=== PATIENT | female | born 1965 | race Caucasian/White ===

== ENCOUNTER → 2016-11-14 | Outpatient (CLI) | payer BC ==
[~2016-11-14] MED LIST: LABE200T24 PO; LEVO75TA33 PO; LORA-741 PO; MULTTAB58 PO; OXYC5TAB PO; PANT40TA PO; Vitamin D3 PO
--- NOTE | 2016-11-14 14:08 | DIAGNOSTIC IMAGING REPORT ---
CHEST 2 VIEWS ROUTINE CLINICAL HISTORY: Shortness of breath COMPARISON STUDY: 07/29/2013 FINDINGS: The cardiac and mediastinal contours are normal. There is no evidence of focal pulmonary consolidation. There is no evidence of failure. No pleural effusions are visualized.[ There is an area of linear scarring at the posterior lung base as visualized in the lateral view. IMPRESSION: No active disease in the chest. Electronically signed by: Lukasz Daniels M.D. 11/14/2016 2:07 PM Dictated Date/Time: 11/14/2016 2:05 PM
[2016-11-14 17:01] LABS: BASO % 0.6 %; BASO ABS # 0.03 K/uL (0-0.2); COMPLETE YES; EOS % 1.8 %; HEMATOCRIT 40.8 % (37-47); IG% 0.2 %; LYMPH % 25.3 %; LYMPH ABS # 1.25 K/uL (1.2-3.4); MEAN CELL VOLUME 82.6 fL (80-100); MEAN CORPUSCULAR HEMOGLOBIN 29.1 pg (25-34); MEAN CORPUSCULAR HGB CONC 35.3 g/dl (32-36); MEAN PLATELET VOLUME 9.3 fL (7.4-10.4); MONO % 8.7 %; NEUT % 63.4 %; PLATELET COUNT 250 K/uL (130-400); RED BLOOD COUNT 4.94 M/uL (4.2-5.4); WHITE BLOOD COUNT 4.94 K/uL (4.8-10.8)
[2016-11-14 17:29] LABS: BLOOD UREA NITROGEN 13 mg/dl (7-18); BUN/CREATININE RATIO 14.4 (10-20); CALCIUM 9.1 mg/dl (8.5-10.1); CARBON DIOXIDE 30 mmol/L (21-32); CHLORIDE 103 mmol/L (98-107); CREATININE 0.92 mg/dl (0.60-1.20); GLUCOSE 119 mg/dl (70-99); POTASSIUM 3.7 mmol/L (3.5-5.1); SODIUM 140 mmol/L (136-145)
== END | disposition home or self-care (01) ==
LOC: C.RADBC 13:47
PROVIDERS: ATTEND Internal Medicine Geriatric Medicine
DX: R06.02 Shortness of breath (principal)

== ENCOUNTER → 2017-01-26 | Outpatient (CLI) | payer BC ==
--- NOTE | 2017-01-26 14:52 | DIAGNOSTIC IMAGING REPORT ---
THYROID ULTRASOUND CLINICAL HISTORY: Thyroid nodule. Dysphagia. COMPARISON STUDY: Thyroid ultrasound January 22, 2015. TECHNIQUE: Sonography of the thyroid gland was performed. FINDINGS: The right thyroid lobe measures 4.3 x 1.3 x 1.5 cm. The dominant right lobe nodule which was previously biopsied is similar to prior exam when allowing for measurement variability. A few additional thyroid nodules are unchanged since prior exam. As before, the gland is heterogeneous. IMPRESSION: No significant change in several thyroid nodules. Electronically signed by: Tommie Lane M.D. 01/26/2017 2:51 PM Dictated Date/Time: 01/26/2017 2:47 PM
== END | disposition home or self-care (01) ==
LOC: C.ULTRBC 14:24
PROVIDERS: ATTEND Family Medicine
DX: R13.10 Dysphagia, unspecified (principal); E04.2 Nontoxic multinodular goiter

== ENCOUNTER → 2017-01-30 | Outpatient (CLI) | payer BC ==
--- NOTE | 2017-01-30 08:52 | DIAGNOSTIC IMAGING REPORT ---
(BARIUM SWALLOW) ESOPHAGUS CLINICAL HISTORY: Dysphagia. COMPARISON STUDY: Barium swallow June 20, 2011. FLUOROSCOPY TIME: 0.9 minutes. FINDINGS: 24 fluoroscopic images were obtained. Esophageal motility was normal. No esophageal mass or stricture was identified. A 13 mm barium tablet passed into the stomach. Moderate gastroesophageal reflux was noted. Gastroesophageal junction was normal. No hiatal hernia was identified. IMPRESSION: 1. No esophageal mass or stricture. 2. Moderate gastroesophageal reflux. Electronically signed by: Tommie Lane M.D. 01/30/2017 8:51 AM Dictated Date/Time: 01/30/2017 8:49 AM
== END | disposition home or self-care (01) ==
LOC: C.RAD 07:33
PROVIDERS: ATTEND Family Medicine
DX: R13.10 Dysphagia, unspecified (principal); K21.9 Gastro-esophageal reflux disease without esophagitis

== ENCOUNTER → 2017-01-31 | Outpatient (CLI) | payer BC ==
--- NOTE | 2017-02-01 08:15 | MAMMOGRAPHY REPORT ---
BILATERAL DIGITAL SCREENING MAMMOGRAM TOMOSYNTHESIS WITH CAD: 01/31/2017 CLINICAL HISTORY: Routine screening. Patient has no complaints. TECHNIQUE: Breast tomosynthesis in addition to standard 2D mammography was performed. Current study was also evaluated with a Computer Aided Detection (CAD) system. COMPARISON: Comparison is made to exams dated: 01/26/2016 ultrasound, 01/26/2016 mammogram, 07/21/2015 mammogram, 01/18/2015 mammogram, 01/13/2015 mammogram, and 09/18/2012 mammogram - [facility]. BREAST COMPOSITION: There are scattered areas of fibroglandular density in both breasts. FINDINGS: There is scattered nodularity and associated microcalcification throughout the right great er than left breast, stable compared to prior exams most likely representing benign fibrocystic ayala ges. No suspicious spiculated or irregular mass, architectural distortion or cluster of suspicious microcalcifications is seen. IMPRESSION: ACR BI-RADS CATEGORY 1: NEGATIVE There is no mammographic evidence of malignancy. A 1 year screening mammogram is recommended. The p atient will receive written notification of the results. Approximately 10% of breast cancers are not detected with mammography. A negative mammographic repor t should not delay biopsy if a clinically suggestive mass is present. Vivian Jensen M.D. ay/:01/31/2017 17:35:39 Tobacco Blender: Iqra MORALES)(M), [facility] letter sent: Normal 1/2 BI-RADS Code: ACR BI-RADS Category 1: Negative
== END | disposition home or self-care (01) ==
LOC: C.MAMM 12:05
PROVIDERS: ATTEND Family Medicine
DX: Z12.31 Encounter for screening mammogram for malignant neoplasm of breast (principal)

== ENCOUNTER → 2017-05-03 | Outpatient (CLI) | payer BC ==
[2017-05-03 13:42] LABS: BASO % 0.6 %; BASO ABS # 0.03 K/uL (0-0.2); COMPLETE YES; EOS % 1.6 %; HEMATOCRIT 41.8 % (37-47); IG% 0.2 %; MEAN CELL VOLUME 85.8 fL (80-100); MEAN CORPUSCULAR HEMOGLOBIN 29.8 pg (25-34); MEAN CORPUSCULAR HGB CONC 34.7 g/dl (32-36); MEAN PLATELET VOLUME 9.6 fL (7.4-10.4); MONO % 6.4 %; NEUT % 63.2 %; PLATELET COUNT 245 K/uL (130-400); RED BLOOD COUNT 4.87 M/uL (4.2-5.4)
[2017-05-03 14:27] LABS: BLOOD UREA NITROGEN 10 mg/dl (7-18); BUN/CREATININE RATIO 13.9 (10-20); CALCIUM 9.5 mg/dl (8.5-10.1); CARBON DIOXIDE 28 mmol/L (21-32); CHLORIDE 106 mmol/L (98-107); CREATININE 0.72 mg/dl (0.60-1.20); GLUCOSE 89 mg/dl (70-99); SODIUM 140 mmol/L (136-145)
[2017-05-03 14:29] LABS: LYME DISEASE AB IGG NEG (NEG)
[2017-05-03 14:32] LABS: LYME DISEASE AB IGM NEG (NEG)
== END | disposition home or self-care (01) ==
LOC: C.LABBC 10:24
PROVIDERS: ATTEND Physician Assistant Medical
DX: R51 Headache (principal); E03.9 Hypothyroidism, unspecified

== ENCOUNTER → 2017-06-13 | Outpatient (CLI) | payer BC ==
[2017-06-13 14:09] LABS: URINE APPEARANCE CLEAR (CLEAR); URINE BILIRUBIN NEG (NEG); URINE COLOR YELLOW; URINE NITRITE NEG (NEG); UROBILINOGEN NEG (NEG)
[2017-06-13 14:22] LABS: MANUAL MICROSCOPIC REQUIRED? NO; REVIEW REQ? NO
== END | disposition home or self-care (01) ==
LOC: C.LABSPEC 13:30
PROVIDERS: ATTEND Physician Assistant
DX: R39.9 Unspecified symptoms and signs involving the genitourinary system (principal)

== ENCOUNTER → 2017-09-14 | Outpatient (CLI) | payer BC | END | disposition home or self-care (01) | LOC: C.PAPS 09:24 | PROVIDERS: ATTEND Obstetrics & Gynecology | DX: Z01.419 Encounter for gynecological examination (general) (routine) without abnormal findings (principal) ==

== ENCOUNTER → 2017-11-16 | Outpatient (CLI) | payer BC ==
[2017-11-16 10:59] LABS: BASO % 0.6 %; BASO ABS # 0.03 K/uL (0-0.2); EOS % 1.6 %; EOS ABS # 0.08 K/uL (0-0.5); HEMATOCRIT 39.7 % (37-47); HEMOGLOBIN 14.3 g/dL (12.0-16.0); LYMPH % 29.1 %; LYMPH ABS # 1.45 K/uL (1.2-3.4); MEAN CELL VOLUME 83.6 fL (80-100); MEAN CORPUSCULAR HEMOGLOBIN 30.1 pg (25-34); MEAN PLATELET VOLUME 9.5 fL (7.4-10.4); NEUT % 60.7 %; NEUT ABS # 3.03 K/uL (1.4-6.5); PLATELET COUNT 240 K/uL (130-400); RED CELL DISTRIBUTION WIDTH CV 12.4 % (11.5-14.5); RED CELL DISTRIBUTION WIDTH SD 37.6 fL (36.4-46.3); WHITE BLOOD COUNT 4.99 K/uL (4.8-10.8)
[2017-11-16 11:10] LABS: BLOOD UREA NITROGEN 13 mg/dl (7-18); CALCIUM 9.1 mg/dl (8.5-10.1); CARBON DIOXIDE 26 mmol/L (21-32); CREATININE 0.72 mg/dl (0.60-1.20); GLUCOSE 93 mg/dl (70-99); SODIUM 136 mmol/L (136-145)
== END | disposition home or self-care (01) ==
LOC: C.LABBC 07:15
PROVIDERS: ATTEND Nurse Practitioner Adult Health
DX: E03.9 Hypothyroidism, unspecified (principal); R53.83 Other fatigue; R51 Headache; I10 Essential (primary) hypertension

== ENCOUNTER 2017-12-14 01:28 | Observation (INO) | payer BC ==
[~2017-12-14] VITALS: Ht 160 cm; Wt 88.9 kg
[2017-12-14] MEDS ORDERED: LORAZEPAM 2 MG/ML 1 ML VIAL IV STA (01:39)
[2017-12-14 02:07] LABS: BASO ABS # 0.06 K/uL (0-0.2); EOS % 1.1 %; EOS ABS # 0.07 K/uL (0-0.5); HEMATOCRIT 41.7 % (37-47); HEMOGLOBIN 15.5 g/dL (12.0-16.0); IG# 0.01 K/uL (0.00-0.02); MEAN CELL VOLUME 82.9 fL (80-100); MEAN CORPUSCULAR HEMOGLOBIN 30.8 pg (25-34); MEAN CORPUSCULAR HGB CONC 37.2 g/dl (32-36); MEAN PLATELET VOLUME 8.8 fL (7.4-10.4); MONO % 8.1 %; NEUT % 63.6 %; NEUT ABS # 3.92 K/uL (1.4-6.5); PLATELET COUNT 218 K/uL (130-400); RED CELL DISTRIBUTION WIDTH CV 12.4 % (11.5-14.5); WHITE BLOOD COUNT 6.16 K/uL (4.8-10.8)
[2017-12-14 02:27] LABS: ALBUMIN 4.5 gm/dl (3.4-5.0); ALT/SGPT 35 U/L (12-78); AST/SGOT 13 U/L (15-37); BLOOD UREA NITROGEN 15 mg/dl (7-18); CALCIUM 9.9 mg/dl (8.5-10.1); CARBON DIOXIDE 26 mmol/L (21-32); GLUCOSE 91 mg/dl (70-99); LIPASE 211 U/L (73-393); POTASSIUM 3.6 mmol/L (3.5-5.1); SODIUM 138 mmol/L (136-145)
[2017-12-14 02:38] LABS: ALKALINE PHOSPHATASE 91 U/L (45-117); TOTAL PROTEIN 8.6 gm/dl (6.4-8.2)
[2017-12-14] MEDS ORDERED: POTASSIUM CHLORIDE 10 MEQ TABCR PO STA (04:08)
[2017-12-14] MEDS ORDERED: LORAZEPAM 0.5 MG TAB PO PRN (04:30)
[2017-12-14] MEDS ORDERED: ONDANSETRON 8MG OD TAB PO PRN (04:30)
[2017-12-14] MEDS ORDERED: NITROGLYCERIN 0.4 MG SL PER TAB CHARGE SL PRN (04:30)
[2017-12-14] MEDS ORDERED: ACETAMINOPHEN 325 MG TAB PO PRN (04:30)
[2017-12-14] MEDS ORDERED: CHOL1TAB12 PO (05:01)
--- NOTE | 2017-12-14 05:20 | History and Physical ---
History & Physical Date & Time of Service: Dec 14, 2017 at 05:00 Chief Complaint: High Bp,Heart Palpitations,Short Of Preath Primary Care Physician: No Doctor, Assigned History of Present Illness Source: patient, hospital records The patient is a 52-year-old female who presents to the emergency department with worsening in frequency and intensity PVCs, during which she reports an episode of dizziness that accompanied her last set prior to arrival. She follows with cardiology Dr. Wagoner. She reports taking her medications as directed. She continues to have poor sleep that she reports is so for several years. She has not had a significant change in diet or exercise pattern. She has questioned as to whether she may be perimenopausal. She reports having had an echocardiogram performed a few weeks ago, that she was told was normal. She does not take any [id number] products including caffeine or decongestants. She does report that she is tired frequently because of inadequate sleep. Past Medical/Surgical History Medical Problems: (1) Abdominal pain (2) Appendectomy (3) Benign hypertension (4) Endometrial ablation (5) Gallbladder sludge (6) Gastroesophageal reflux disease (7) Hypothyroidism (8) Malignant essential hypertension (9) Near syncope (10) PVCs (11) Symptomatic PVCs Family History noncontributory Social History Smoking Status: Never Smoker Smokeless Tobacco Use: No Alcohol Use: none Drug Use: none Marital Status: Housing status: lives with family Occupational Status: employed Immunizations History of Influenza Vaccine: Unknown Influenza Vaccine Date: Jul 11, 2011 History of Tetanus Vaccine?: Unknown Tetanus Immunization Date: Feb 27, 2008 History of Pneumococcal: Unknown History of Hepatitis B Vaccine: Unknown Allergies Coded Allergies: SHAD Inhibitors (Verified Allergy, Mild, 08/11/13) Azithromycin (Verified Allergy, Unknown, HIVES, 07/22/15) Codeine (Verified Allergy, Unknown, SWELLING, 07/22/15) Doxycycline (Verified Allergy, Unknown, UNKN, 08/11/13) Lisinopril (Verified Allergy, Unknown, UNKN, 08/11/13) Metoprolol (Verified Allergy, Unknown, UNKN, 08/11/13) Morphine (Verified Allergy, Unknown, 08/11/13) Penicillins (Verified Allergy, Unknown, 08/11/13) Uncoded Allergies: MORPHINE DERIVATIVES (Allergy, Unknown, UNKN, 05/11/13) bee stings (Allergy, Unknown, swelling, 07/22/15) Home Medications Scheduled Labetalol Hcl (Labetalol Hcl), 300 MG PO QAM Labetalol Hcl (Labetalol Hcl), 100 MG PO NOON+PM Levothyroxine (Levoxyl), 0.075 MG PO DAILY Multiple Vitamin (Multivitamin), 1 TAB PO DAILY Pantoprazole (Protonix), 40 MG PO DAILY [Vitamin D3], 1,000 INTER.UNIT PO DAILY Scheduled PRN Lorazepam (Ativan), 0.5 MG PO Q6H PRN for Anxiety Review of Systems The patient denies chest pain, dyspnea on exertion, cough, lower extremity swelling, sore throat, fevers, chills, sweats, weight change, nausea, vomiting, diarrhea , constipation, abdominal pain, pelvic pain, blood in urine or stool, dysuria, urinary frequency or urgency, headache, memory loss, loss of consciousness, rash, abnormal bruising or bleeding, imbalance, focal or generalized weakness, numbness or tingling in arms or legs, generalized arthralgias or myalgias, back or neck pain, or night sweats. The review of systems is otherwise negative other than for that already noted above, and at least 10 systems have been reviewed. Physical Exam Vital Signs Date Time Temp Pulse Resp B/P (MAP) Pulse Ox O2 Delivery O2 Flow Rate FiO2 12/14/17 04:00 83 18 139/89 96 Room Air 12/14/17 02:32 90 18 159/97 98 Room Air 12/14/17 02:32 98 Room Air 12/14/17 01:51 96 Room Air 12/14/17 01:45 87 12/14/17 01:29 36.4 77 20 188/95 97 Room Air The patient is awake, alert and oriented 3, well developed and well nourished, normocephalic and atraumatic, lying in bed and in no acute distress. HEENT--PERRL, EOMI, mucous membranes and oropharynx normal. Neck--supple. No JVD. No bruits. Thyroid normal, trachea midline, no adenopathy. Heart--normal S1 and S2. No murmurs, rubs or gallops. Lungs--clear bilaterally, no respiratory distress, no accessory muscle use. Abdomen--normal bowel sounds and soft. Nontender. Nondistended, no hernias or masses, no organomegaly. Extremities--no cyanosis or clubbing. No edema. There are good distal pulses b/ l. Dermatologic--normal skin turgor, normal color, no abnormal lymph nodes, no rash. Neurologic--cranial nerves II through XII grossly intact. Rheumatologic--normal range of motion. Psychiatric--normal affect. Diagnostics Laboratory Results Results Past 24 Hours Test 12/14/17 01:45 12/14/17 01:55 12/14/17 04:25 Range/Units White Blood Count 6.16 4.8-10.8 K/uL Red Blood Count 5.03 4.2-5.4 M/uL Hemoglobin 15.5 12.0-16.0 g/dL Hematocrit 41.7 37-47 % Mean Corpuscular Volume 82.9 80-100 fL Mean Corpuscular Hemoglobin 30.8 25-34 pg Mean Corpuscular Hemoglobin Concent 37.2 32-36 g/dl Platelet Count 218 130-400 K/uL Mean Platelet Volume 8.8 7.4-10.4 fL Neutrophils (%) (Auto) 63.6 % Lymphocytes (%) (Auto) 26.0 % Monocytes (%) (Auto) 8.1 % Eosinophils (%) (Auto) 1.1 % Basophils (%) (Auto) 1.0 % Neutrophils # (Auto) 3.92 1.4-6.5 K/uL Lymphocytes # (Auto) 1.60 1.2-3.4 K/uL Monocytes # (Auto) 0.50 0.11-0.59 K/uL Eosinophils # (Auto) 0.07 0-0.5 K/uL Basophils # (Auto) 0.06 0-0.2 K/uL RDW Standard Deviation 37.0 36.4-46.3 fL RDW Coefficient of Variation 12.4 11.5-14.5 % Immature Granulocyte % (Auto) 0.2 % Immature Granulocyte # (Auto) 0.01 0.00-0.02 K/uL Sodium Level 138 136-145 mmol/L Potassium Level 3.6 3.5-5.1 mmol/L Chloride Level 104 98-107 mmol/L Carbon Dioxide Level 26 21-32 mmol/L Anion Gap 8.0 3-11 mmol/L Blood Urea Nitrogen 15 7-18 mg/dl Creatinine 0.70 0.60-1.20 mg/dl Est Creatinine Clear Calc Drug Dose 98.3 ml/min Estimated GFR () 114.6 Estimated GFR (Non- 98.9 BUN/Creatinine Ratio 21.1 10-20 Random Glucose 91 70-99 mg/dl Calcium Level 9.9 8.5-10.1 mg/dl Magnesium Level 2.2 1.8-2.4 mg/dl Total Bilirubin 0.7 0.2-1 mg/dl Direct Bilirubin 0.1 0-0.2 mg/dl Aspartate Amino Transf (AST/SGOT) 13 15-37 U/L Alanine Aminotransferase (ALT/SGPT) 35 12-78 U/L Alkaline Phosphatase 91 45-117 U/L Troponin I < 0.015 0-0.045 ng/ml Total Protein 8.6 6.4-8.2 gm/dl Albumin 4.5 3.4-5.0 gm/dl Lipase 211 73-393 U/L Thyroid Stimulating Hormone (TSH) 5.840 0.300-4.500 uIu/ml Bedside D-Dimer 196 0-450 ng/mlFEU Bedside Troponin I < 0.030 0-0.045 ng/ml CXR normal EKG EKG shows normal sinus rhythm at 90 bpm, ventricular bigeminy, no acute ST-T changes. Impression Assessment and Plan Symptomatic PVCs/runs of ventricular bigeminy and isolated PVCs-- The patient will be admitted to telemetry for serial cardiac enzymes, serial EKG's, and cardiac rhythm monitoring. Echocardiogram had been performed recently and was normal, and will therefore not be repeated. Continue labetalol 300 mg in the morning, 100 mg at noon, and 100 mg at 430 to 5 :00 (which is typically when she returns home from work). Her potassium level was borderline at 3.6, and will therefore give 40 mEq of potassium orally, and would target her potassium to be 4.0 or above. She has not been sleeping well for a long time, which may be an influencing factor. Her thyroid is mildly undercorrected, and she has a history of hyperthyroidism with radioiodine therapy. She should also speak with her senior analysis specialist regarding possible perimenopausal influence. Consult her soup person Dr. Wagoner. Hypothyroidism/status post radio iodine ablation therapy for hyperthyroidism-- Continue levothyroxine sodium 75 mcg daily Add a free T4, free T3, thyroid microsomal antibodies and thyroid-stimulating antibodies. Her last thyroid ultrasound was January 2017, and showed stable thyroid nodules. This will need repeated. GERD-- Continue pantoprazole 40 mg daily. Anxiety-- Continue Lorazepam. Advanced Directives Existing Advance Directive: No Existing Living Will: No Existing Power of Tobacco Scrap Sifter: No Resuscitation Status VTE Prophylaxis Will order VTE Prophylaxis: Yes Social Service Consult None Apply
--- NOTE | 2017-12-14 05:24 | EMERGENCY ROOM VISIT NOTE ---
History First contact with patient: 01:32 Chief Complaint: CHEST PAIN Stated Complaint: HIGH BP,HEART PALPITATIONS,SHORT OF PREATH Nursing Triage Summary: pt c/o chest "tightness." states it has been going on "for weeks" but is worse tonight. pt denies sob. states she was dx with "PVCs" in july. denies chest trauma or recent long travel. lungs clear in all zap[place]. pt alert and oriented x4, breathing WNL, and ambulatory independently. History of Present Illness The patient is a 52 year old female who presents to the Emergency Room with complaints of chest pressure and palpitations for the past several hours feels slightly lightheaded. No prior heart disease. Patient is a history of PVCs. Patient states she can feel them more frequently now. Patient states she feels slightly short of breath. Patient denies radiating pain, diaphoresis, nausea, vomiting, diarrhea, abdominal pain, leg pain or swelling, recent travel. No family history of heart disease or blood clots. No prior stress test. Patient states she had an echo a few weeks ago that was unchanged per patient. She cannot recall who the excelsior cutter was. Review of Systems An 10 system review of systems was completed with positives and pertinent negatives listed in the HPI. Past Medical/Surgical History Medical Problems: (1) Appendectomy (2) Benign hypertension (3) Endometrial ablation (4) Gastroesophageal reflux disease (5) Hypothyroidism (6) Near syncope (7) PVCs (8) Symptomatic PVCs Social History Smoking Status: Never Smoker Alcohol Use: none Marital Status: Housing Status: lives with family Occupation Status: employed Current/Historical Medications Scheduled Cholecalciferol (Vitamin D3), 3,000 UNITS PO DAILY Labetalol Hcl (Labetalol Hcl), 300 MG PO QAM Labetalol Hcl (Labetalol Hcl), 100 MG PO NOON+PM Levothyroxine (Levoxyl), 0.075 MG PO DAILY Multiple Vitamin (Multivitamin), 1 TAB PO DAILY Pantoprazole (Protonix), 40 MG PO DAILY [Vitamin D3], 1,000 INTER.UNIT PO DAILY Scheduled PRN Lorazepam (Ativan), 0.5 MG PO Q6H PRN for Anxiety Physical Exam Vital Signs Date Time Temp Pulse Resp B/P (MAP) Pulse Ox O2 Delivery O2 Flow Rate FiO2 12/14/17 05:04 78 18 131/70 97 3/23/18 04:00 83 18 139/89 96 Room Air 12/14/17 02:32 90 18 159/97 98 Room Air 12/14/17 02:32 98 Room Air 12/14/17 01:51 96 Room Air 12/14/17 01:45 87 12/14/17 01:29 36.4 77 20 188/95 97 Room Air Physical Exam VITALS: Vitals are noted on the nurse's note and reviewed by myself. Vital signs stable. GENERAL: Pleasant female anxious appearing, in no acute distress, nondiaphoretic , well-developed well-nourished. SKIN: The skin was without rashes, erythema, edema, or bruising. There is no tenting of the skin. Capillary reflex less than 2 seconds. HEAD: Normocephalic atraumatic. EARS: External auditory canals clear, tympanic membranes pearly torres without erythema or effusion bilaterally. EYES: Pupils equal round and reactive to light and accommodation. Conjunctivae without injection, sclerae without icterus. Extraocular movements intact. NOSE: Patent, turbinates without inflammation or discharge. MOUTH: Mucous membranes moist. Pharynx without erythema or exudate. Uvula midline. Airway patent. Tongue does not deviate. NECK: Supple without nuchal rigidity. No lymphadenopathy. No thyromegaly. Cervical spine is nontender. No JVD. HEART: Regular rate and rhythm without murmurs gallops or rubs. LUNGS: Clear to auscultation bilaterally without wheezes, rales or rhonchi. No retractions or accessory muscle use. ABDOMEN: Positive bowel sounds x 4. Normal tympanic percussion. Soft, nontender, without masses or organomegaly. Hernandez sign negative. No guarding or rebound tenderness. No CVA tenderness MUSCULOSKELETAL: No muscle atrophy, erythema, or edema noted. NEURO: Patient was alert and oriented to person place and time. Normal sensation to light and sharp touch. No focal neurological deficits. Medical Decision & Procedures Laboratory Results 12/14/17 01:45 Red Blood Count 5.03, Mean Corpuscular Volume 82.9, Mean Corpuscular Hemoglobin 30.8, Mean Corpuscular Hemoglobin Concent 37.2, Mean Platelet Volume 8.8, Neutrophils (%) (Auto) 63.6, Lymphocytes (%) (Auto) 26.0, Monocytes (%) (Auto) 8.1, Eosinophils (%) (Auto) 1.1, Basophils (%) (Auto) 1.0, Neutrophils # (Auto) 3.92, Lymphocytes # (Auto) 1.60, Monocytes # (Auto) 0.50, Eosinophils # (Auto) 0.07, Basophils # (Auto) 0.06 12/14/17 01:45 Test 12/14/17 01:45 12/14/17 01:55 12/14/17 04:25 White Blood Count 6.16 K/uL (4.8-10.8) Red Blood Count 5.03 M/uL (4.2-5.4) Hemoglobin 15.5 g/dL (12.0-16.0) Hematocrit 41.7 % (37-47) Mean Corpuscular Volume 82.9 fL (80-100) Mean Corpuscular Hemoglobin 30.8 pg (25-34) Mean Corpuscular Hemoglobin Concent 37.2 g/dl (32-36) Platelet Count 218 K/uL (130-400) Mean Platelet Volume 8.8 fL (7.4-10.4) Neutrophils (%) (Auto) 63.6 % Lymphocytes (%) (Auto) 26.0 % Monocytes (%) (Auto) 8.1 % Eosinophils (%) (Auto) 1.1 % Basophils (%) (Auto) 1.0 % Neutrophils # (Auto) 3.92 K/uL (1.4-6.5) Lymphocytes # (Auto) 1.60 K/uL (1.2-3.4) Monocytes # (Auto) 0.50 K/uL (0.11-0.59) Eosinophils # (Auto) 0.07 K/uL (0-0.5) Basophils # (Auto) 0.06 K/uL (0-0.2) RDW Standard Deviation 37.0 fL (36.4-46.3) RDW Coefficient of Variation 12.4 % (11.5-14.5) Immature Granulocyte % (Auto) 0.2 % Immature Granulocyte # (Auto) 0.01 K/uL (0.00-0.02) Anion Gap 8.0 mmol/L (3-11) Est Creatinine Clear Calc Drug Dose 98.3 ml/min Estimated GFR () 114.6 Estimated GFR (Non- 98.9 BUN/Creatinine Ratio 21.1 (10-20) Calcium Level 9.9 mg/dl (8.5-10.1) Magnesium Level 2.2 mg/dl (1.8-2.4) Total Bilirubin 0.7 mg/dl (0.2-1) Direct Bilirubin 0.1 mg/dl (0-0.2) Aspartate Amino Transf (AST/SGOT) 13 U/L (15-37) Alanine Aminotransferase (ALT/SGPT) 35 U/L (12-78) Alkaline Phosphatase 91 U/L (45-117) Troponin I < 0.015 ng/ml (0-0.045) Total Protein 8.6 gm/dl (6.4-8.2) Albumin 4.5 gm/dl (3.4-5.0) Lipase 211 U/L (73-393) Thyroid Stimulating Hormone (TSH) 5.840 uIu/ml (0.300-4.500) Free Thyroxine 1.21 ng/dl (0.80-1.60) Bedside D-Dimer 196 ng/mlFEU (0-450) Bedside Troponin I < 0.030 ng/ml (0-0.045) Medications Administered Medications (Trade) Dose Ordered Sig/Latonya Route Start Time Stop Time Status Last Admin Dose Admin Lorazepam (Ativan Inj) 1 mg NOW STAT IV 12/14/17 01:39 12/14/17 01:41 DC 12/14/17 02:26 1 MG Potassium Chloride (Klor-Con M10) 40 meq NOW STAT PO 12/14/17 04:08 12/14/17 04:09 DC 12/14/17 04:19 40 MEQ ED Course Prior records/ancillary studies reviewed. Triage Nursing notes reviewed. Additional history obtained from family. The patient's history was concerning for chest pain and palpitations. Differential diagnosis: Etiologies such as cardiac ischemia, aortic dissection, pulmonary embolism, pneumonia, pneumothorax, musculoskeletal, infections, pericarditis, myocarditis , esophageal rupture, gastrointestinal, thyroid disorder, electrolyte abnormality, as well as others were entertained. Physical examination: As above. ER treatment provided: Ativan On reassessment the patient felt better. Diagnostic interpretation by me: The electrocardiogram was normal sinus, bigeminy PVCs, no acute ST-T wave changes, impression normal sinus rhythm with bigeminy PVCs interpreted by myself The labs revealed negative troponin. Negative d-dimer Imaging studies: Chest x-ray with no acute consolidation, pneumothorax or free air per my interpretation Consultation: A consultation was placed with the hospitalist, Dr. Graves. The case was discussed and diagnostics were reviewed. The patient was evaluated in the ER for further treatment. Exam and history seem consistent with chest pain and palpitations with bigeminy. Patient still anxious appearing. Patient is at high blood pressure. She has never had a stress test. Patient feels symptomatic with her PVCs. She will be evaluated by medicine for possible cardiac rule out. Patient's first troponin is negative. She had a negative d-dimer. I do not believe she is having a PE. Patient's symptoms are most likely from her frequent PVCs. By the evaluation outlined above emergent etiologies such as aortic dissection, pulmonary embolism, pneumonia, pneumothorax, infections, pericarditis, myocarditis, gastrointestinal, as well as others were deemed relatively unlikely. The pt informed about the findings as listed above. All questions were answered and pleased with the treatment. Case reviewed with my attending The chart was completed utilizing [employer] Speech voice recognition software. Grammatical errors, random word insertions, pronoun errors, and incomplete sentences are an occassional consequence of this system due to software limitations, ambient noise, and hardware issues. Any formal questions or concerns about the content, text, or information contained within the body of this dictation should be directly addressed to the physician triage assistant for clarification. Medical Decision As above Medication Reconcilliation Current Medication List: was personally reviewed by me Blood Pressure Screening Patient's blood pressure: Normal blood pressure Impression Primary Impression: Substernal precordial chest pain Additional Impression: Bigeminy Departure Information Dispostion Being Evaluated By Hospitalist Condition GOOD Referrals No Doctor, Assigned (PCP) Patient Instructions [facility] Problem Qualifiers
[2017-12-14 05:45] VITALS: BP 131/85; PULSE 86; TEMP 36.5; O2SAT 96; Ht 160 cm; Wt 88.9 kg
[2017-12-14] MEDS ORDERED: IV FLUIDS COMPLETED PRN ×2 (05:45)
--- NOTE | 2017-12-14 07:32 | DIAGNOSTIC IMAGING REPORT ---
CHEST ONE VIEW PORTABLE HISTORY: Atypical CHEST PAIN COMPARISON: Chest 11/14/2016. FINDINGS: The lungs are clear. Cardiac silhouette is normal in size. No pleural effusions. No pneumothorax. IMPRESSION: No acute process. Electronically signed by: Jg Keyes M.D. 12/14/2017 7:31 AM Dictated Date/Time: 12/14/2017 7:30 AM
[2017-12-14 08:00] VITALS: BP 131/84; PULSE 82; TEMP 36.7; O2SAT 96
[2017-12-14] MEDS ORDERED: LABETALOL HCL 100 MG TAB PO SCH ×2 (09:00→12:00)
[2017-12-14] MEDS ORDERED: MULTIVITAMIN TAB PO SCH (09:00)
[2017-12-14] MEDS ORDERED: CHOLECALCIFEROL 1000 INTER.UNIT TAB PO SCH (09:00)
[2017-12-14] MEDS ORDERED: PANTOprazole SOD 40 MG TAB PO SCH (09:00)
--- NOTE | 2017-12-14 09:24 | Cardiology Consultation ---
Cardiology Consultation Date of Consultation: Dec 14, 2017. Requesting Physician: Mary Ann Reason for Consultation: PVCs Pt evaluation today including: conversation w/ patient, physical exam, chart review, lab review, review of studies, review of inpatient medication list History of Present Illness The patient is a 52-year-old woman with a history of hypertension and symptomatic PVCs who presented [facility] last evening with symptoms of dyspnea and palpitations. Patient states that she has felt poorly for months. She feels as if "things are falling apart" and she "can not do anything". She states that almost a she is bothered by a sense of palpitations in as a result does not perform any physical activity. She states that lately she has been having difficulty even going to work and cannot sleep at night. She has a variety of other symptoms most notable of which is fatigue. She has an element of dyspnea that she associates with palpitations. Last evening she appeared to have severe dyspnea and noticed that her blood pressure was exceedingly high. She presented to [facility] early this morning at the urging of her son. In the emergency room she was found to have a rhythm of ventricular bigeminy and hypertension. She was admitted for observation. Currently she feels better. She states that the palpitations are less noticeable. She states she has no breathing difficulty currently but has "not been doing anything". Occasionally she has episodes of this. These are poorly characterized and relatively infrequent. Sometimes they can be severe. However, she has not had syncope. She has essentially been sedentary by her report 4 months. Chest pain does not appear to be a prominent feature of her presentation. Occasionally she will have some discomfort associated with what she perceived to be palpitations. Again, she has been relatively inactive physically. She has not noticed any swelling in her lower extremities but this morning did have a cramp in her left calf. She is curious to know if she is going through menopause and whether some of her symptoms may be related to changes in hormones. 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 She does appear to be frustrated regarding her current symptoms. She does report poor sleep hygiene at night which she feels is related to palpitations. All Other Systems: Reviewed and Negative Allergies Coded Allergies: SHAD Inhibitors (Verified Allergy, Mild, 08/11/13) Azithromycin (Verified Allergy, Unknown, HIVES, 07/22/15) Codeine (Verified Allergy, Unknown, SWELLING, 07/22/15) Doxycycline (Verified Allergy, Unknown, UNKN, 08/11/13) Lisinopril (Verified Allergy, Unknown, UNKN, 08/11/13) Metoprolol (Verified Allergy, Unknown, UNKN, 08/11/13) Morphine (Verified Allergy, Unknown, 08/11/13) Penicillins (Verified Allergy, Unknown, 08/11/13) Uncoded Allergies: MORPHINE DERIVATIVES (Allergy, Unknown, UNKN, 05/11/13) bee stings (Allergy, Unknown, swelling, 07/22/15) Medications Current Inpatient Medications Medications (Trade) Dose Ordered Sig/Latonya Route Start Time Stop Time Status Last Admin Dose Admin Acetaminophen (Tylenol Tab) 650 mg Q4H PRN PO 12/14/17 04:30 01/13/18 04:29 Nitroglycerin (Nitrostat Tab) 0.4 mg UD PRN SL 12/14/17 04:30 01/13/18 04:29 Labetalol HCl (Normodyne Tab) 100 mg BID@1200,1700 PO 12/14/17 12:00 01/13/18 11:59 Labetalol HCl (Normodyne Tab) 300 mg QAM PO 12/14/17 09:00 01/13/18 08:59 12/14/17 07:57 300 MG Levothyroxine Sodium (Synthroid Tab) 75 mcg DAILYBB PO 12/15/17 06:00 01/14/18 05:59 12/14/17 06:23 75 MCG Lorazepam (Ativan Tab) 0.5 mg Q6H PRN PO 12/14/17 04:30 01/13/18 04:29 Multivitamins (Multivitamin Tab) 1 tab DAILY PO 12/14/17 09:00 01/13/18 08:59 12/14/17 07:57 1 TAB Pantoprazole Sodium (Protonix Tab) 40 mg DAILY PO 12/14/17 09:00 01/13/18 08:59 12/14/17 07:58 40 MG Cholecalciferol (Vitamin D Tab) 1,000 inter.unit QAM PO 12/14/17 09:00 01/13/18 08:59 12/14/17 07:58 1,000 INTER.UNIT Ondansetron HCl (Zofran Odt) 8 mg Q6H PRN PO 12/14/17 04:30 01/13/18 04:29 Miscellaneous (Iv Fluids Completed) 1 ea PRN PRN N/A 12/14/17 05:45 12/14/18 05:44 Miscellaneous (Iv Fluids Completed) 1 ea PRN PRN N/A 12/14/17 05:45 12/14/18 05:44 Physical Exam Vital Signs Past 12 Hours Date Time Temp Pulse Resp B/P (MAP) Pulse Ox O2 Delivery O2 Flow Rate FiO2 12/14/17 08:00 Room Air 12/14/17 08:00 36.7 82 16 131/84 (100) 96 Room Air 12/14/17 05:45 36.5 86 18 131/85 96 Room Air 12/14/17 05:04 78 18 131/70 97 12/14/17 04:00 83 18 139/89 96 Room Air 12/14/17 02:32 90 18 159/97 98 Room Air 12/14/17 02:32 98 Room Air 12/14/17 01:51 96 Room Air 12/14/17 01:45 87 12/14/17 01:29 36.4 77 20 188/95 97 Room Air She is alert and oriented x3. Mood affect appear normal. She answered all questions appropriately. HEENT: Sclerae are anicteric. Pupils are equal and reactive to light and accommodation. Extraocular movements were intact. Neuro: Cranial nerves intact Neck: Examination of the submandibular region did not reveal any significant lymphadenopathy. Carotids are palpable bilaterally and free of bruits on auscultation. There was no evidence of jugular venous distention. The thyroid was not enlarged. Lungs: Lungs are clear to auscultation bilaterally. There are no rales wheezes or rhonchi. She has normal respiratory effort without use of accessory muscles. There is normal pulmonary excursion. Cardiac: The rhythm was regular with occasional ectopy. S1 and S2 were normal. There are no murmurs on examination. The PMI was not markedly displaced on palpation. Abdomen: The abdomen was soft and nontender. Extremities: Patient has bilateral radial pulses that are equal in intensity. There is no evidence cyanosis or clubbing. There was no evidence of significant peripheral edema bilaterally. Skin: There are no rashes noted on examination today. Data Laboratory Results: Last 24 Hours Test 12/14/17 01:45 12/14/17 01:55 White Blood Count 6.16 K/uL Red Blood Count 5.03 M/uL Hemoglobin 15.5 g/dL Hematocrit 41.7 % Mean Corpuscular Volume 82.9 fL Mean Corpuscular Hemoglobin 30.8 pg Mean Corpuscular Hemoglobin Concent 37.2 g/dl Platelet Count 218 K/uL Mean Platelet Volume 8.8 fL Neutrophils (%) (Auto) 63.6 % Lymphocytes (%) (Auto) 26.0 % Monocytes (%) (Auto) 8.1 % Eosinophils (%) (Auto) 1.1 % Basophils (%) (Auto) 1.0 % Neutrophils # (Auto) 3.92 K/uL Lymphocytes # (Auto) 1.60 K/uL Monocytes # (Auto) 0.50 K/uL Eosinophils # (Auto) 0.07 K/uL Basophils # (Auto) 0.06 K/uL RDW Standard Deviation 37.0 fL RDW Coefficient of Variation 12.4 % Immature Granulocyte % (Auto) 0.2 % Immature Granulocyte # (Auto) 0.01 K/uL Sodium Level 138 mmol/L Potassium Level 3.6 mmol/L Chloride Level 104 mmol/L Carbon Dioxide Level 26 mmol/L Anion Gap 8.0 mmol/L Blood Urea Nitrogen 15 mg/dl Creatinine 0.70 mg/dl Est Creatinine Clear Calc Drug Dose 98.3 ml/min Estimated GFR () 114.6 Estimated GFR (Non- 98.9 BUN/Creatinine Ratio 21.1 Random Glucose 91 mg/dl Calcium Level 9.9 mg/dl Magnesium Level 2.2 mg/dl Total Bilirubin 0.7 mg/dl Direct Bilirubin 0.1 mg/dl Aspartate Amino Transf (AST/SGOT) 13 U/L Alanine Aminotransferase (ALT/SGPT) 35 U/L Alkaline Phosphatase 91 U/L Troponin I < 0.015 ng/ml Total Protein 8.6 gm/dl Albumin 4.5 gm/dl Lipase 211 U/L Thyroid Stimulating Hormone (TSH) 5.840 uIu/ml Free Thyroxine 1.21 ng/dl Free Triiodothyronine 2.94 pg/ml Bedside D-Dimer 196 ng/mlFEU Bedside Troponin I < 0.030 ng/ml Imaging: Chest x-ray the time of admission was normal EKG: Normal sinus rhythm with ventricular bigeminy Telemetry reviewed: Normal sinus rhythm with occasional PVCs Echocardiogram performed November 2017: Normal systolic function. No evidence of LVH. No significant valvular heart disease. Stage II diastolic dysfunction. Assessment & Plan 1. Symptomatic PVCs: Patient had outpatient evaluation in late 2016 which revealed symptomatic PVCs. The exact number of PVCs during that period of monitoring could not be tablet. The patient feels that her symptoms have progressed since that time. She is not appear to have much of a PVC burden on her telemetry currently. She does seem to have some symptoms related to this arrhythmia. As she describes it, her sensation of PVCs or palpitations have kept her from "doing anything". Her cardiac evaluation to date has been unremarkable. Beta-blockers are often employed for a reduction in the number of PVCs, but in her case this is not appear to have been effective. The morphology of her PVCs on 12 lead suggested this is a left ventricular focus not involving the outflow tract. This would be less attractive target for ablation. Given which she describes as a severe nature of her symptoms and the relative incapacitation she has experienced from these arrhythmias it would seem reasonable to try a more aggressive approach at suppression. Flecainide seems like a reasonable choice in her case given her structurally normal heart. We need to exclude occult coronary disease and this could easily be accomplished with stress testing. I think she is low risk for complication with the flecainide in this circumstance it seems like a reasonable option. Exercise testing will also allow us to see if the frequency of PVCs increases with exercise which is generally associated with a more adverse prognosis. 2. Hypertension: The patient is relatively fixated on her blood pressure which she says has been elevated for several decades. She apparently has intolerance is to a variety of anti hypertensives. Her blood pressures monitored this morning appear normal. My suspicion is that she often measures her blood pressure when she is feeling poorly and is notably elevated. However, if there is some need for more aggressive blood pressure control use of an aldosterone antagonist could be considered. I would start with spironolactone 25 milligrams daily and monitor her renal function and potassium. Fortunately, there is not appear to be any evidence of LVH on her echocardiogram. 3. Dizziness and dyspnea: Unclear these related to her arrhythmia. On outpatient monitoring she did have some occasional pauses but these were not associated with symptoms. Her dyspnea may be related to a adopting a sedentary lifestyle and associated deconditioning. We will have some opportunity to evaluate the symptoms with exercise testing today. 4. Fatigue: This appears to be 1 of her most prominent symptoms. It appears to be longstanding in nature. Undoubtedly there is an element of poor sleep hygiene associated with fatigue. 5. Diastolic dysfunction: Reported as pseudo normal or stage II. I do not believe that her current symptoms of occasional dyspnea are related. The way she describes it is more likely associated with the brief sensation of dyspnea associated with PVCs. Control of her blood pressure would be the main intervention. She is currently on beta-blockade which may also help. I ordered her a stress echocardiogram today. This is normal she could be started on flecainide 50 milligrams twice daily with follow-up in the Cardiology Clinic to monitor her response.
[2017-12-14] MEDS ORDERED: PERFLUTREN LIPID MICROSPHERE (DEFINITY) IV ONE (09:45)
--- NOTE | 2017-12-14 11:10 | EXERCISE STRESS ECHO ---
*NOTICE TO RECEIVING [employer] This information is strictly Confidential and protected under [place] law. [place] law prohibits you from making any further disclosure of this information unless further disclosure is expressly permitted by the written consent of the person to whom it pertains or is authorized by law. A general authorization for the release of medical or other information is not sufficient for this purpose. Hospital accepts no responsibility if the information is made available to any other person, INCLUDING THE PATIENT. Interpretation Summary * Name: JESUS CASTREJON Study Date: 12/14/2017 08:42 AM BP: 154/94 mmHg * Patient Location: C.2T\S\S232\S\1 HR: 85 * : 1965 (M/d/yyyy) Gender: Female Height: 63 in * Age: 52 yrs Ethnicity: [place] Weight: 195 lb * Ordering Physician: Darnell Wagoner * Referring Physician: Self, Referred * Performed By: Yesica Hartman RDCS * * Reason For Study: CHEST PAIN * BSA: 1.9 m2 * -- Conclusions -- * Stress Echo: * 1. Negative stress echo for ischemia at 85 % MPHR. * 2. Negative exercise ECG for ischemia at 85 % MPHR. * 3. Blunted blood pressure response to exercise. * 4. No arrhythmia. * 5. Study terminated due to dyspnea. No chest pain reported. * 6. Fair exercise tolerance. Patient exercised 14 seconds longer compared to prior stress on 02/24/2009. * 7. Technically difficult study, enhanced with IV Definity. * Echo: * 1. Normal left ventricular size and systolic function. EF 60-65%. No regional wall motion abnormalities. Mild concentric left ventricular hypertrophy. Type 1 diastolic dysfunction. * 2. No significant valvular abnormalities visualized. Procedure Details * ECHOEX, CPT #86403 * A contrast injection of Definity was performed to improve assessment of LV function. * Contrast was injected into an intravenous site in the right arm. * One vial of Definity ultrasound contrast was diluted in normal saline to a total volume of 10 ml. A total of '3' ml of solution was administered during imaging. * Lot # [id number] of Definity utilized for procedure. * Expiration date NOV 12. * The attending nurse who injected the contrast agent was TAMRA WHALEN RN. Left Ventricle * The left ventricle is normal in size. * There is mild concentric left ventricular hypertrophy. * Left ventricular systolic function is normal. * The left ventricular ejection fraction increases normally with stress. The left ventricular end-systolic cavity size reduces post-stress (normal response). The left ventricular wall motion with stress is normal. * Resting wall motion: Normal. Stress wall motion: Appropriate increase in Left ventricular systolic function and decrease in cavity size. No stress induced segmental wall motion abnormalities. Right Ventricle * The right ventricle is normal in size and function. Atria * The left atrial size is normal. * Right atrial size is normal. * There is no evidence of atrial septal defect, but resolution does not allow assessment for a patent foramen ovale. Mitral Valve * The mitral valve is grossly normal. * There is no mitral valve stenosis. * There is trace mitral regurgitation. Tricuspid Valve * The tricuspid valve is not well visualized, but is grossly normal. * There is no tricuspid stenosis. * There is mild tricuspid regurgitation. Aortic Valve * The aortic valve is trileaflet. * No hemodynamically significant valvular aortic stenosis. * No aortic regurgitation is present. Pulmonic Valve * The pulmonary valve is inadequately visualized, but the Doppler data is adequate for interpretation. * There is no significant pulmonary regurgitation. Great Vessels * The aortic root is normal size. Pericardium * There is no pericardial effusion. Stress Parameters * Sinus rhythm at 86 bpm. * Stress ECG: No ST changes. No arrhythmias. * No arrhythmia were noted with stress. * Rest heart rate was '85' BPM. * Rest blood pressure was '154/94' * Maximum heart rate achieved was 142 bpm. * Maximum heart rate was 85 % of maximum age-predicted heart rate. * Maximum blood pressure was '165/78' * Total exercise time was '6:00' * Maximum exercise MET level achieved was '7.00' METS * Maximum treadmill speed was '2.50' miles per hour. * Maximum treadmill elevation was '12.00'% grade. * Exercise was terminated due to 'Dyspnea' MMode 2D Measurements and Calculations IVSd 1.3 cm IVSs 1.7 cm LVIDd 3.5 cm LVIDs 2.3 cm LVPWd 1.2 cm LVPWs 1.6 cm IVS/LVPW 1.1 FS 32.2 % EDV(Teich) 49.2 ml ESV(Teich) 19.0 ml EF(Teich) 61.5 % EDV(cubed) 41.2 ml ESV(cubed) 12.8 ml EF(cubed) 68.8 % % IVS thick 26.4 % % LVPW thick 34.9 % LV mass(C)d 147.3 grams LV mass(C)dI 77.0 grams/m\S\2 LV mass(C)s 142.4 grams LV mass(C)sI 74.5 grams/m\S\2 SV(Teich) 30.3 ml SI(Teich) 15.8 ml/m\S\2 SV(cubed) 28.3 ml SI(cubed) 14.8 ml/m\S\2 Ao root diam 3.1 cm Ao root area 7.6 cm\S\2 LA dimension 3.1 cm LA/Ao 0.98 Doppler Measurements and Calculations MV E max leanna 43.8 cm/sec MV A max leanna 67.9 cm/sec MV E/A 0.64 MV dec time 0.26 sec Ao V2 max 115.8 cm/sec Ao max PG 5.4 mmHg Ao max PG (full) 1.7 mmHg LV V1 max PG 3.7 mmHg LV V1 max 96.0 cm/sec TR max leanna 243.7 cm/sec
[2017-12-14 12:00] VITALS: BP 110/61; PULSE 94; TEMP 36.8; O2SAT 96
[2017-12-14 15:00] VITALS: BP 122/80; PULSE 78; TEMP 36.7; O2SAT 94
[2017-12-14] MEDS ORDERED: FLEC50TA PO (15:33)
--- NOTE | 2017-12-14 15:38 | Discharge Instructions ---
Discharge Instructions Date of Service Dec 14, 2017. Admission Reason for Admission: Near Syncope, Symptomatic Pvcs Discharge Discharge Diagnosis / Problem: Dizziness, symptomatic premature ventricular complexes Discharge Goals Goal(s): Decrease discomfort, Improve function, Diagnostic testing, Therapeutic intervention Activity Recommendations Activity Limitations: resume your previous activity (as tolerated) . Instructions / Follow-Up Instructions / Follow-Up You were admitted due to increasingly symptomatic PVCs. You were evaluated by your classifier, Dr. Wagoner, who recommended the initiation of an anti- arrhythmic drug called flecainide to help reduce your frequency of PVCs and hopefully help alleviate your symptoms. You will be started on a low dose and will follow up with Dr. Wagoner in a few weeks. At that point, an event monitor may be initiated to see if there are fewer PVCs. In the meantime, you will be scheduled to follow up with your primary care provider within the next week. Prior to starting the flecainide, a stress echocardiogram was done to ensure you did not have underlying coronary artery disease or structural abnormalities of the heart that would contraindicate the use of that medication. Your stress echocardiogram was normal. Medications: *Please take flecainide 50 mg twice a day. *Continue your other home medications as prescribed. Follow up: *You will be scheduled to follow up with your primary care provider in the next week and Dr. Wagoner in the next few weeks. *Your primary care provider should repeat thyroid function tests in a few weeks. If your thyroid stimulating hormone remains elevated, you may need titration of your levothyroxine. Please seek medical attention if you experience fevers, chills, sweats, dizziness/lightheadedness, loss of consciousness, chest pain, shortness of breath, nausea, vomiting, numbness or tingling. Current Hospital Diet Patient's current hospital diet: AHA Diet (Heart Healthy) Discharge Diet Recommended Diet: AHA Diet (Heart Healthy) Procedures Procedures Performed: Stress echocardiogram Pending Studies Studies pending at discharge: no Medical Emergencies . Who to Call and When: Medical Emergencies: If at any time you feel your situation is an emergency, please call 911 immediately. . Non-Emergent Contact Non-Emergency issues call your: Primary Care Provider, [employer] Call Non-Emergent contact if: you have a fever, you have any medication questions . Past History Medical & Surgical History: (1) Symptomatic PVCs . "Provider Documentation" section prepared by Octavia Ledbetter. .
[2017-12-14 15:50] VITALS: BP 122/80; PULSE 78; TEMP 36.7; O2SAT 94
--- NOTE | 2017-12-14 15:51 | Discharge Summary ---
Discharge Summary Date of Service Dec 14, 2017. Discharge Summary Admission Date: Dec 14, 2017 at 04:22 Discharge Date: Dec 14, 2017 Discharge Disposition: Home Principal Diagnosis: Symptomatic PVCs Problems/Secondary Diagnoses: HTN, hypothyroidism, anxiety, GERD Immunizations: Have You Had Influenza Vaccine: Unknown Influenza Vaccine Date: Jul 11, 2011 History of Tetanus Vaccine?: Unknown Tetanus Immunization Date: Feb 27, 2008 History of Pneumococcal: Unknown History of Hepatitis B Vaccine: Unknown Procedures: Stress echocardiogram: Interpretation Summary * Name: JESUS CASTREJON Study Date: 12/14/2017 08:42 AM BP: 154/94 mmHg * Patient Location: 2\S\S232\S\1 HR: 85 * : 1965 (M/d/yyyy) Gender: Female Height: 63 in * Age: 52 yrs Ethnicity: CA Weight: 195 lb * Ordering Physician: Darnell Wagoner * Referring Physician: Self, Referred * Performed By: Yesica Hartman RDCS * * Reason For Study: CHEST PAIN * BSA: 1.9 m2 * -- Conclusions -- * Stress Echo: * 1. Negative stress echo for ischemia at 85 % MPHR. * 2. Negative exercise ECG for ischemia at 85 % MPHR. * 3. Blunted blood pressure response to exercise. * 4. No arrhythmia. * 5. Study terminated due to dyspnea. No chest pain reported. * 6. Fair exercise tolerance. Patient exercised 14 seconds longer compared to prior stress on 02/24/2009. * 7. Technically difficult study, enhanced with IV Definity. * Echo: * 1. Normal left ventricular size and systolic function. EF 60-65%. No regional wall motion abnormalities. Mild concentric left ventricular hypertrophy. Type 1 diastolic dysfunction. * 2. No significant valvular abnormalities visualized. Procedure Details * ECHOEX, CPT #15243 * A contrast injection of Definity was performed to improve assessment of LV function. * Contrast was injected into an intravenous site in the right arm. * One vial of Definity ultrasound contrast was diluted in normal saline to a total volume of 10 ml. A total of '3' ml of solution was administered during imaging. * Lot # [id number] of Definity utilized for procedure. * Expiration date NOV 12. * The attending nurse who injected the contrast agent was TAMRA WHALEN RN. Left Ventricle * The left ventricle is normal in size. * There is mild concentric left ventricular hypertrophy. * Left ventricular systolic function is normal. * The left ventricular ejection fraction increases normally with stress. The left ventricular end-systolic cavity size reduces post-stress (normal response). The left ventricular wall motion with stress is normal. * Resting wall motion: Normal. Stress wall motion: Appropriate increase in Left ventricular systolic function and decrease in cavity size. No stress induced segmental wall motion abnormalities. Right Ventricle * The right ventricle is normal in size and function. Atria * The left atrial size is normal. * Right atrial size is normal. * There is no evidence of atrial septal defect, but resolution does not allow assessment for a patent foramen ovale. Mitral Valve * The mitral valve is grossly normal. * There is no mitral valve stenosis. * There is trace mitral regurgitation. Tricuspid Valve * The tricuspid valve is not well visualized, but is grossly normal. * There is no tricuspid stenosis. * There is mild tricuspid regurgitation. Aortic Valve * The aortic valve is trileaflet. * No hemodynamically significant valvular aortic stenosis. * No aortic regurgitation is present. Pulmonic Valve * The pulmonary valve is inadequately visualized, but the Doppler data is adequate for interpretation. * There is no significant pulmonary regurgitation. Great Vessels * The aortic root is normal size. Pericardium * There is no pericardial effusion. Consultations: Cardiology Medication Reconciliation New Medications: Flecainide Acetate (Tambocor) 50 Mg Tab 50 MG PO BID for 30 Days, #60 TAB Continued Medications: Cholecalciferol (Vitamin D3) 3,000 Unit Tab 3000 UNITS PO DAILY Labetalol Hcl (Labetalol Hcl) 200 Mg Tab 300 MG PO QAM, TAB Labetalol Hcl (Labetalol Hcl) 200 Mg Tab 100 MG PO NOON+PM, TAB Levothyroxine (Levoxyl) 0.075 Mg Tab 0.075 MG PO DAILY, 0 Refills Lorazepam (Ativan) 0.5 Mg Tab 0.5 MG PO Q6H PRN for Anxiety, TAB Multiple Vitamin (Multivitamin) 1 Tab Tab 1 TAB PO DAILY, TAB Pantoprazole (Protonix) 40 Mg Tab 40 MG PO DAILY, 0 Refills [Vitamin D3] () 1000 INTER.UNIT PO DAILY Discharge Exam Patient feeling well, denies any dizziness or lightheadedness today. She completed her stress echocardiogram without any chest pain or dizziness. She states she has not been sleeping well lately, and this is an ongoing issue. Her family states she snores at night. Recommended outpatient sleep study to assess for KATINA which could contribute to arrhythmias. The patient denies fevers , chills, sweats, chest pain, palpitations, claudication, cough, wheezing, shortness of breath, nausea, vomiting, abdominal pain, dysuria, hematuria, urinary retention, paralysis, weakness, numbness and tingling. Constitutional: No fever, No chills, No sweats Eyes: No worsening of vision, No eye pain, No diplopia ENT: No hearing loss, No nasal symptoms, No trouble swallowing Respiratory: No cough, No wheezing, No shortness of breath Cardiovascular: No chest pain, No claudication, No palpitations Abdomen: No pain, No nausea, No vomiting Musculoskeletal: No joint pain, No muscle pain, No swelling Genitourinary - Female: No dysuria, No urinary retention, No hematuria Neurologic: No paralysis, No weakness, No numbness/tingling Integumentary: No rash, No itch, No color change General appearance: +Obese. Well-developed, well-nourished, no apparent distress Head: Normocephalic, atraumatic Eyes: Normal inspection, PERRL, EOMI ENT: Normal ENT inspection, hearing grossly normal, pharynx normal Neck: Supple, no JVD, trachea midline Respiratory/Chest: Lungs clear to auscultation, normal breath sounds, no respiratory distress Cardiovascular: Regular rate & rhythm, no gallop, no murmur Abdomen/GI: Normal bowel sounds, non-tender, soft Extremities/Musculoskeletal: Normal inspection, no calf tenderness, no pedal edema Neurological/Psych: Alert, normal mood/affect, oriented x 3 Skin: Normal color, warm/dry, no rash Hospital Course 52 y/o female with a history of HTN, symptomatic PVCs, hypothyroidism, anxiety, and GERD who presents with symptomatic PVCs, dizziness and near syncope. Symptomatic PVCs/runs of ventricular bigeminy--stable -Admit to telemetry for observation. No acute events overnight. Pt in sinus rhythm with HR 80s-90s. No significant bigeminy or PVC burden while inpatient -EKG at admission did show bigeminy, however -Troponin negative x 2. No chest pain or symptoms, will not repeat -Cardiology consulted, appreciate recs: Spoke with Dr. Wagoner. Pt feels symptoms from PVCs are getting worse despite beta alysa therapy. Will try flecainide in addition to reduce PVCs. Will first rule out occult coronary artery disease with stress testing. If that is normal and no structural heart abnormalities, can start flecainide 50 mg twice a day. Do not need to continue tele monitoring here. Hold off on spironolactone as BP well controlled here. Follow up in a few weeks, can repeat Holter or event monitor then. -D/C with flecainide 50 mg PO BID Poor sleep hygiene--insomnia, snoring -Possible KATINA, recommend outpatient sleep study -Could be contributing to above HTN--stable -Continue home labetalol H/o hyperthyroidism s/p radioiodine ablation, hypothyroidism -TSH 5.84 here. Can repeat in 4-6 weeks, consider titrating levothyroxine -Free T3 and T4 WNL -Continue levothyroxine 75 mcg PO qd GERD -Continue Protonix Anxiety--stable -Continue Lorazepam prn DVT prophylaxis -SCDs Code Status -Level I, FULL RESUSCITATION STATUS PA Physician Supervision Note: I interviewed and examined the patient. Discussed with Octavia KAUR and agree with findings and plan as documented in the note. Any exceptions or clarifications are listed here: None Patient is in the room the company of her family. We discussed the role of flecainide in her treatment as prescribed by Dr. Wagoner patient was feeling back to her normal state Temperature 36 5 pulse 86 respiration 18 BP 131/86 patient is a symptomatically ventricular tachycardia Patient will be having flecainide added to her labetalol and follow with Dr. Wagoner Documented By: Feliciano Gonzalez Total Time Spent: Greater than 30 minutes This includes examination of the patient, discharge planning, medication reconciliation, and communication with other providers. Discharge Instructions Please refer to the electronic Patient Visit Report (Discharge Instructions) for additional information.
[2017-12-14] MEDS ORDERED: LORA-741 PO (16:18)
[2017-12-15] MEDS ORDERED: LEVOTHYROXINE 75 MCG TAB PO SCH (06:00)
[2017-12-17 19:26] LABS: MICROSOMAL AB 3 IU/ML (<9); TSI <89 % baseline (<140)
== END 2017-12-14 16:37 | disposition home or self-care (01) ==
LOC: C.EDB 01:29 → C.2T 04:22 → ENRESERV 04:34
PROVIDERS: ADMIT Hospitalist; ATTEND Internal Medicine
DX: I49.3 Ventricular premature depolarization (principal); I10 Essential (primary) hypertension; E03.9 Hypothyroidism, unspecified; F41.9 Anxiety disorder, unspecified; K21.9 Gastro-esophageal reflux disease without esophagitis; Z79.899 Other long term (current) drug therapy; Z90.89 Acquired absence of other organs; Z88.0 Allergy status to penicillin; Z88.6 Allergy status to analgesic agent; Z88.1 Allergy status to other antibiotic agents

== ENCOUNTER → 2018-02-06 | Outpatient (CLI) | payer BC ==
[~2018-02-06] MED LIST changes: +CHOL1TAB12 PO; +FLEC50TA PO; -MULTTAB58 PO; -OXYC5TAB PO; -Vitamin D3 PO
--- NOTE | 2018-02-06 15:25 | MAMMOGRAPHY REPORT ---
BILATERAL DIGITAL SCREENING MAMMOGRAM TOMOSYNTHESIS WITH CAD: 02/06/2018 CLINICAL HISTORY: Routine screening. Patient has no complaints. TECHNIQUE: Breast tomosynthesis in addition to standard 2D mammography was performed. Current study was also evaluated with a Computer Aided Detection (CAD) system. COMPARISON: Comparison is made to exams dated: 01/31/2017 mammogram, 01/26/2016 mammogram, 07/21/2015 m ammogram, 07/21/2015 ultrasound, 08/31/2010 mammogram, and 09/04/2011 mammogram - [facility]. BREAST COMPOSITION: There are scattered areas of fibroglandular density in both breasts. FINDINGS: No suspicious masses, calcifications, or areas of architectural distortion are noted in ei ther breast. There has been no significant interval change compared to prior exams. Scattered nodula rity and associated microcalcifications noted bilaterally, right breast greater than left, are not si gnificantly changed compared to prior exams and most likely represent fibrocystic changes. IMPRESSION: ACR BI-RADS CATEGORY 2: BENIGN There is no mammographic evidence of malignancy. A 1 year screening mammogram is recommended. The pa tient will receive written notification of the results. Approximately 10% of breast cancers are not detected with mammography. A negative mammographic report should not delay biopsy if a clinically suggestive mass is present. Stephanie Montanez M.D. /:02/06/2018 13:03:57 Quality Process Lead: Judith MORALES)(Divine), [facility] letter sent: Normal 1/2 BI-RADS Code: ACR BI-RADS Category 2: Benign
== END | disposition home or self-care (01) ==
LOC: C.MAMM 12:12
PROVIDERS: ATTEND Nurse Practitioner Adult Health
DX: Z12.31 Encounter for screening mammogram for malignant neoplasm of breast (principal)

== ENCOUNTER → 2018-02-08 | Outpatient (CLI) | payer BC ==
--- NOTE | 2018-02-09 05:45 | PAP/PSG TECHNICIAN REPORT ---
[facility] Shrink Pit Supervisor Polysomnogram Report Study name: None Report date: 02/09/2018 Study date: 02/08/2018 Referring Physician: IRVIN Mayers Name: JESUS CASTREJON Interpreting Physician: Gilmar Seymour M.D. Date of : 1965 Shrink Pit Supervisor: AWILDA Horner. Sex: Female Age: 52 Study Type: PSG Weight: 195 lbs 15.75 in Height: 52 years, Height 5' 3" Neck Circum: BMI: 34.54 Medications: FLECAINIDE ACETATE 50 MG, LABETALOL 200 MG, LEVOTHYROXINE 75 MCG, LORAZEPAM 0.5 MG, MULTI VIT PANTOPRAZOLE 40 MG, VIT D3 3000 UNIT Patient History 52 yr-old female here for a baseline study. She has had previous sleep testing. Her AHI from then is unknown. She is back to assess any KATINA she may have due to elevated blood pressure. Her [place] scale is 4. The test was started on room air. ETCO2 testing was not utilized during this study. Room 1 Parameters Monitored NPSG: E1-M2, E2-M1, Fp1-M2, Fp2-M1, F3-M2, F4-M2, F4-M1, C3-M2, C4-M2, C4-M1, O1-M2, O2-M2, O2-M1, T3-M2, T4-M1, P3-M2, P4-M1, CHIN1, CHIN2, HR, EKG, Legs, PFLOW, SNOR, FLOW, CFLOW, Tidal Volume, THOR, ABDO, SpO2, PLTH, CPRESS, ETCO2 Wave, ETCO2, pH Sleep Architecture Sleep Stages Time at Lights Off 10:02:52 PM STAGES Time (min.) TST (%) Time at Lights On 5:09:22 AM Wake 186.5 -- Total Recording Time (TRT) 426.50 min. N1 39.0 16 Total Sleep Period (TSP) 350.0 min. N2 188.0 78 Total Sleep Time (TST) 240.0min. N3 6.5 3 Awake Time 186.5 min. REM 6.5 3 Wake after Sleep Onset 151.0 min. Sleep Efficiency (SE) 56 % Sleep Onset Latency (HARSHAD) 35.5 min. Number of Stage 1 Shifts None Awakenings 23 Stage Changes 81 Number of REM periods 2 REM 6.5 3 REM Latency 235.5 min. NREM 233.5 97 Body Position Analysis Supine Right Left Side Prone Vertical Total Sleep Time (min.) 138.8 135.5 46.5 182.00 0.0 0.0 Total Sleep Time (%) 24% 56% 19% 76 0% N/A% Total Sleep Time REM (min.) 0.0 4.5 2.0 None 0.0 0.0 Total Sleep Time NREM (min.) 58.0 131.0 44.5 None 0.0 0.0 Intermittent Wake (min.) 80.8 85.2 20.5 None 0.0 0.0 Total Sleep Period (%) 22% None None None None None Arousals Myoclonus (PLM) * Events Count Index Events Count Index Spontaneous 36 9 Events Awake (PLMW) 175 56.3 Respiratory 2 0.5 Events Asleep w/ Arousal (PLMA) 10 2.5 PLM 10 3 Events Asleep w/o Arousal (PLMS) 24 6.0 Snoring 1 0 Total Asleep 34 8.5 Total 49 12 Total 209 29 Respiratory Analysis * CA OA MA CH H RERA Total Count 0 0 0 0 16 0 16 Index 0.0 0.0 0.0 0 4.0 0 4.0 Mean Duration 0.0 0.0 0.0 0.00 16.4 0.0 16.4 Longest Duration 0.0 0.0 0.0 0.00 0.0 0.0 25.4 Respiratory Event Summary Total Supine ~Supine Right Left Prone REM NREM Apneas Count 0 0 0 0 0 N/A 0 0 Index 0.0 0 0 0.0 0.0 N/A 0 0 Hypopneas (4% Desat) Count 16 0 16 11 5 N/A 6 10 Index 4.0 0.0 5 4.9 6.5 N/A 55.4 2.6 Apneas & All Hypopneas Count 16 0 16 11 5 N/A 6 10 Index 4.0 0 5 5 6 N/A 55.4 2.6 Respiratory Events (Coordinator Of Placement+All Hyp+RERA) Count 16 0 16 11 5 N/A 6 10 Index 4.0 0 5 4.9 6.5 N/A 55.4 2.6 Respiratory Related Arousal Count 2 0 2 2 0 N/A 0 2 Index 0.5 0 1 1 0 N/A 0 1 Snoring Analysis Supine Right Left Prone REM NREM Total Snore duration 1.1 min Snores count 20 28 36 N/A 0 84 84 Snore mean duration 0.8 Sec Snores index 21 12 46 N/A 0.0 21.6 21.0 TST with snoring (%) 0.5% Desaturation Event Summary: Minimum %SpO2 Event Count Mean/Min/Max Duration(sec.) Desaturation Index % Time In Bed > 90 41 35.7 / 10.0 / 60.0 11.3 52.5 86 - 90 19 23.9 / 10.0 / 48.0 5.9 46.8 81 - 85 0 N/A 0.0 0.6 76 - 80 0 N/A 0.0 0.0 71 - 75 0 N/A 0.0 0.0 66 - 70 0 N/A 0.0 0.0 61 - 65 0 N/A 0.0 0.0 56 - 60 0 N/A 0.0 0.0 51 - 55 0 N/A 0.0 0.0 < 50 0 N/A 0.0 0.0 Total REM NREM Awake <50% 0.0 min. 0.0 min. 0.0 min. 0.0 min. 51 - 60% 0.0 min. 0.0 min. 0.0 min. 0.0 min. 61 - 70% 0.0 min. 0.0 min. 0.0 min. 0.0 min. 71 - 80% 0.1 min. 0.0 min. 0.0 min. 0.1 min. 81 - 90% 197.2 min. 6.0 min. 175.3 min. 15.9 min. 91 - 100% 218.1 min. 0.5 min. 58.0 min. 159.6 min. Average 91 87 90 92 Minimum SpO2 77 82 84 77 Desaturation Event Index 6.9 55.4 4.6 8.0 # Desat. Events below 89% 25 6 17 2 Time(%) with Saturation below 89% 9.9 1.1 8.4 0.3 Time(min.) with Saturation below 89% 41.0 4.4 35.1 1.4 Time (mins) REM (mins) NREM (mins) % of TST SpO2 Below 90% 24 6 N18 45.9 SpO2 Below 88% 9 0 0 4 Heart Rate Analysis Min (bpm) Max (bpm) Average (bpm) Awake 30 127 72 NREM 60 82 68 REM 65 94 72 Overall 60 94 68 Supplemental O2 Values Minimum O2 level: None Value Start Time End Time Shrink Pit Supervisor Comments Ms. Castrejon slept in the right, left, and supine positions. No cardiac arrhythmias were noted. PLMs were noted. No bruxism noted. Snoring was noted and scored as a 1 on a scale of 1 through 5. (0=no snoring, 5=snoring loud enough to be heard through a closed door or down the kaba way) She did not wake up to use the restroom during the night. Ms. Castrejon stated that she slept poorly. The final report will be interpreted and signed by a sleep physician. The completed physician report will then be placed in the patient medical record. Therapy (cm H2O) 0 TIB (min.) 426.5 TST (min.) 240.0 Sleep Onset (min.) 35.5 REM Onset From Sleep (min.) 235.5 Sleep Efficiency % 56 Wakefulness (%) 44 Wakefulness (min.) 186.5 NREM 1 (%) 16 NREM 1 (min.) 39.0 NREM 2 (%) 78 NREM 2 (min.) 188.0 NREM 3 (%) 3 NREM 3 (min.) 6.5 REM (%) 3 REM (min.) 6.5 # Arousals 49 Arousal Index 12 # Snore 84 Snore Index 21.0 AHI 4.0 AHI Supine 0 AHI Non-Supine 5 NREM AHI 2.6 REM AHI 55.4 RDI 4.0 # Obstructive Apnea 0 # Central Apnea 0 # Mixed Apnea 0 # Hypopneas 16 RERAs 0 Total Respiratory Events 16 Time Below SpO2 89% (min.) 39.5 Mean NREM SpO2 (%) 90 Mean REM SpO2 (%) 87 Mean Sleep SpO2 (%) 90 Min NREM SpO2 (%) 84 Min REM SpO2 (%) 82 Position Supine (min.) 138.8 Position Non-supine (min.) 182.0 LM Index Sleep 8.5 LM Index NREM 8.5 LM Index REM 9.2 Mean Heart Rate (bpm) 68 Min Heart Rate (bpm) 60
--- NOTE | 2018-02-11 20:58 | POLYSOMNOGRAPH REPORT ---
CLINICAL DATA: A 52-year-old female with BMI of 34.5 referred by Vivian Esteves for evaluation of possible sleep apnea. She does have snoring and hypertension. She had a previous sleep study. It was unclear what her AHI was then. She is sent to assess sleep apnea. [place] sleepiness score is 4/24. SLEEP ARCHITECTURE: Total sleep period was 350 minutes. Total sleep time was 240 minutes divided between 233.5 minutes of non-REM sleep and 6.5 minutes of REM sleep. Sleep onset latency was delayed at 35.5 minutes. REM latency was delayed at 235.5 minutes. Sleep efficiency was reduced at 56%. Wake after sleep onset was elevated at 151 minutes. Sleep consisted of stage N1 of 16%, stage N2 of 78%, stage N3 of 3%, and REM 3%. AROUSAL DATA: 49 arousals recorded for an index of 12 per hour, 36 were spontaneous. PLM DATA: 34 limb movements during sleep were noted for an index of 8.5 per hour with arousal index of 2.5 per hour. RESPIRATORY DATA: There was no evidence of clinically significant sleep apnea. The AHI was 4. There were 16 hypopneic episodes with a mean duration of 16.4 seconds. OXIMETRY DATA: Transient hypoxemia was seen. Oxygen akiko was 82% during REM. Mean saturation was 91%. Time below 88% was 9 minutes. EKG: Heart rate ranged between 68 and 94 beats per minute. No arrhythmias were noted. THEATER EDUCATION TEACHER'S COMMENTS: The patient slept in the right, left, supine positions. Snoring was mild, rated 1 on a scale of 1-5. IMPRESSION: No evidence of clinically significant sleep apnea/hypopnea with an AHI of 4. However, the patient had very limited deep sleep or REM sleep. However, there is nothing based on this sleep study to suggest that CPAP would be of benefit. RECOMMENDATIONS: The patient should continue to practice good sleep hygiene.
== END | disposition home or self-care (01) ==
LOC: C.NEUR 20:00
PROVIDERS: ATTEND Nurse Practitioner Adult Health
DX: I10 Essential (primary) hypertension (principal); I49.3 Ventricular premature depolarization; R06.83 Snoring